=== PATIENT | female | born 1985 | race Caucasian/White ===

== ENCOUNTER 2016-09-28 22:37 | Emergency (ER) | payer SELFPAY ==
[~2016-09-28] VITALS: Ht 157.5 cm; Wt 90.7 kg
[~2016-09-28 22:37] MED LIST: ALBUTEROL17 GM INH; BACTRIM DS TABL1 TA1 PO; CIPRO PO; FLAGYL PO; FLEXERIL10 MG; FLEXERIL10 MG PO; MEDROL4 MG/DOSE-; MEDROL4 MG/DOSE- PO; NO MEDICATIONS; PAXIL; TAMIFLU75 M1 PO; ULTRAM PO; YASMIN 28 TABLE1 TAB PO; ZOLOFT PO
== END 2016-09-28 23:45 | disposition home or self-care (01) ==
LOC: SED 22:37
DX: J02.9 Acute pharyngitis, unspecified (principal); J45.909 Unspecified asthma, uncomplicated
CPT/HCPCS: 87651; 96372; 99283; J0561